=== PATIENT | male | born 1985 | race Caucasian/White ===

== ENCOUNTER 2016-10-27 15:33 | Emergency (ER) | payer OTHER ==
[~2016-10-27] VITALS: Ht 175.3 cm; Wt 77.0 kg
[~2016-10-27 15:33] MED LIST: ADVAI500I PO; ALBU8I INH; HYDR-3534 PO; MEDR4PAK PO; ZITHTAB PO
[2016-10-27 15:35] VITALS: BP 130/80; PULSE 82; RESP 14; TEMP 98; O2SAT 99
--- NOTE | 2016-10-27 18:22 | PD ---
HPI Chief Complaint: Skin Problem Time Seen by Provider: 18:22 Travel History International Travel<30 days: No Contact w/Intl Traveler<30days: No Traveled to known affect area: No History of Present Illness HPI 31-year-old male presents to the emergency room with complaint of an abscess to his right arm/elbow area that started about a week ago. He denies paresthesias , loss of sensation, decreased range of motion, decreasing to the affected extremity. Denies fever, chills, nausea, vomiting. He has tried squeezing the area with no drainage. He has not taken any medications or tried any treatments to alleviate his symptoms. Allergies to shell fish and nuts. He does not know if he is up-to-date on his tetanus vaccination. No other modifying factors or associated signs and symptoms. 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 Ventolin Hfa 18 GM Inh (Albuterol Sulfate) 90 Mcg/Act Aer 2 Puff INH Q4H PRN Review of Systems Except as stated in HPI: all other systems reviewed are Neg Physical Exam Narrative GENERAL: Well-nourished, well-developed male patient, in no acute distress; afebrile, nontoxic-appearing SKIN: There is an indurated area to the right proximal forearm/elbow area which measures about 1 cm in diameter. It is minimally fluctuant and there is pointing without drainage. There is a zone of inflammation around it but no lymphangitis. Right upper extremity supple and nontender 2+ radial pulse and sensory intact without erythema or edema. HEAD: Atraumatic. Normocephalic. EYES: Pupils equal and round. No scleral icterus. No injection or drainage. ENT: Mucosa pink and moist. Airway patent. NECK: Trachea midline. CARDIOVASCULAR: Regular rate. RESPIRATORY: No accessory muscle use. GASTROINTESTINAL: Flat. MUSCULOSKELETAL: No obvious deformities. No clubbing. No cyanosis. No edema. NEUROLOGICAL: Awake and alert. Oriented 3. No obvious cranial nerve deficits. Motor grossly within normal limits. Normal speech. PSYCHIATRIC: Appropriate mood and affect; insight and judgment normal. Data Data Last Documented VS Vital Signs Date Time Temp Pulse Resp B/P Pulse Ox O2 Delivery O2 Flow Rate FiO2 10/27/16 15:35 98.0 82 14 130/80 99 Orders Ibuprofen (Motrin) (10/27/16 18:30) Cephalexin (Keflex) (10/27/16 18:30) Sulfamet-Trimeth Ds 800-160 Mg (Bactrim (10/27/16 18:30) Wound Culture And Gram Stain (10/27/16 18:33) Tetanus/Diphtheria Tox Adult (Tetanus/Di (10/27/16 18:45) MDM Medical Decision Making Medical Screen Exam Complete: Yes Emergency Medical Condition: Yes Medical Record Reviewed: Yes Differential Diagnosis Abscess, cellulitis, folliculitis Narrative Course 31-year-old male with an abscess to his right proximal forearm/elbow area. He is afebrile and nontoxic-appearing. See my procedure note for incision and drainage. Wound culture pending. Bactrim, Keflex, ibuprofen traveling phlebotomist in the ER. Tetanus vaccination updated. Bactrim, Keflex, ibuprofen prescribed for home. Patient verbalizes understanding and agreement with treatment plan. Patient is medically cleared and stable for discharge. Discussed reasons to return to the emergency department. Instructed patient to follow up with primary care provider. Patient agrees with treatment plan. The patients vital signs are stable and the patient is stable for outpatient follow-up and treatment. Patient discharged home, stable and in no acute distress. Procedures Procedure Narrative INCISION AND DRAINAGE OF ABSCESS: The area was prepped with an alcohol pad. An 18-gauge needle was used to puncture the area of the abscess. Cultures were obtained. The abscess was drained. Sterile dressing applied. Diagnosis Primary Impression: Abscess of right arm Referrals: Primary Care Physician Patient Instructions: Abscess (ED), Abscess Follow-up (ED), Abscess Incision and Drainage (ED), General Instructions Departure Forms: Tests/Procedures, Work Release Enter return to work date: Oct 28, 2016 Additional Instructions: Complete full course of antibiotics Warm compresses to the affected area Keep area clean and dry Ibuprofen or Tylenol as directed and as needed for pain and inflammation Follow-up with primary care provider Return to emergency department immediately with worsening of symptoms Med/Other Pt SpecificInfo: Prescription(s) given Scripts Ibuprofen 800 Mg [id number] Mg PO Q6HR PRN (PAIN) #30 TAB Ref 0 Prov:Rachel Garcia 10/27/16 Cephalexin (Keflex)500 Mg [id number] Mg PO Q6H 10 Days Ref 0 Prov:Rachel Garcia 10/27/16 Sulfamethoxazole-Trimethoprim (Bactrim DS)800-160 Mg Tab1 Tab PO BID 10 Days Ref 0 Prov:Rachel Garcia 10/27/16 Disposition: 01 DISCHARGE HOME Condition: Stable Rachel Garcia Oct 27, 2016 18:22
[2016-10-27] MEDS ORDERED: CEPHALEXIN MONOHYDRATE 500 MG CAP PO ONE (18:30)
[2016-10-27] MEDS ORDERED: SULFAMETHOXAZOLE-TRIMETHOPRIM DS 800-160 MG TAB PO ONE (18:30)
[2016-10-27] MEDS ORDERED: IBUPROFEN 800 MG TAB PO ONE (18:30)
[2016-10-27] MEDS ORDERED: ADVA250A INH (18:31)
[2016-10-27] MEDS ORDERED: VENTAER INH (18:31)
[2016-10-27] MEDS ORDERED: TETANUS/DIPHTHERIA TOXOID ADULT 0.5 ML VIAL IM ONE (18:45)
[2016-10-27] MEDS ORDERED: BACT800T5 PO (18:46)
[2016-10-27] MEDS ORDERED: IBUP800T23 PO (18:46)
[2016-10-27] MEDS ORDERED: CEPH-460 PO (18:46)
== END 2016-10-27 19:18 | disposition home or self-care (01) ==
LOC: NETRI 15:33
DX: L02.413 Cutaneous abscess of right upper limb (principal); B95.62 Methicillin resistant Staphylococcus aureus infection as the cause of diseases classified elsewhere; F17.210 Nicotine dependence, cigarettes, uncomplicated; Z23 Encounter for immunization
CPT/HCPCS: 10060; 86403; 87070; 87186; 87205; 90471; 90714

== ENCOUNTER 2017-12-20 15:13 | Emergency (ER) | payer SELFPAY ==
[~2017-12-20 15:13] MED LIST changes: +ADVA250A INH; -ADVAI500I PO; -ALBU8I INH; +BACT800T5 PO; +CEPH-460 PO; -HYDR-3534 PO; +IBUP1TAB7 PO; -MEDR4PAK PO; +VENTAER INH; -ZITHTAB PO
== END 2017-12-20 16:08 | disposition left against medical advice (07) ==
LOC: NED 15:13
DX: Z53.21 Procedure and treatment not carried out due to patient leaving prior to being seen by health care provider (principal)
CPT/HCPCS: 99281